=== PATIENT | male | born 1995 | race American Indian/Alaskan Native ===

== ENCOUNTER 2021-07-14 08:28 | Emergency (ER) | payer MEDICAID ==
[2021-07-14 08:33] VITALS: BP 150/110
[2021-07-14] MEDS ORDERED: ALBUTEROL 2.5 MG/3 ML NEBU IH ONE (08:41)
[2021-07-14] MEDS ORDERED: IPRATROPIUM 0.02% NEBU 2.5 ML IH ONE (08:41)
--- NOTE | 2021-07-14 08:41 | Emergency Department Report ---
ED Asthma HPI - General Chief Complaint: Adult Asthma Stated Complaint: LAUREN Time Seen by Provider: 07/14/21 08:37 Source: patient, EMS Mode of arrival: Stretcher Limitations: Other - History of Present Illness Initial Comments: Patient is 25 years old male with history of autism and asthma. Patient brought to the emergency room via EMS from a local correction for asthma exacerbation. Patient developed shortness of breath, difficulty in breathing and wheezing this morning. Caregiver denied any fever, nausea or vomiting. Patient received albuterol, Solu-Medrol and magnesium sulfate by EMS with some improvement. MD Complaint: "asthma attack", shortness of breath, wheezing -: This morning Severity: moderate Treatments Prior to Arrival: inhaled bronchodilator, IV steroid - Related Data Current Asthma Therapy: inhaled bronchodilator Home Medications Medication Instructions Recorded Confirmed Last Taken ALBUTEROL NEB's [Proventil] 2.5 mg IH TID PRN 05/14/15 05/14/15 05/14/15 Fluticasone Propionate [Flovent 1 puff IH BID 05/14/15 05/14/15 05/14/15 Diskus] Previous Rx's Medication Instructions Recorded Last Taken Type Albuterol Sulfate [Albuterol 0.63% 0.63 mg IH Q4HR PRN #2 ml 05/14/15 Unknown Rx NEBS] Albuterol Sulfate [Proair 90 mcg IH Q4HR PRN #2 aer.pow.ba 05/14/15 Unknown Rx Respiclick] predniSONE [Deltasone] 40 mg PO QDAY #8 tab 05/14/15 Unknown Rx Allergies Allergy/AdvReac Type Severity Reaction Status Date / Time No Known Allergies Allergy Verified 07/14/21 08:31 ED Review of Systems ROS: Stated complaint: LAUREN Other details as noted in HPI Comment: All other systems reviewed and negative Constitutional: denies: chills, fever Respiratory: shortness of breath, SOB with exertion, SOB at rest, wheezing. denies: cough, orthopnea Cardiovascular: palpitations. denies: chest pain Gastrointestinal: denies: abdominal pain, nausea, vomiting, diarrhea Neurological: denies: headache, weakness, numbness, paresthesias, confusion ED Past Medical Hx - Past Medical History Hx Asthma: Yes Additional medical history: Autistic - Social History Smoking Status: Never Smoker Substance Use Type: None - Medications Home Medications: Home Medications Medication Instructions Recorded Confirmed Last Taken Type ALBUTEROL NEB's [Proventil] 2.5 mg IH TID PRN 05/14/15 05/14/15 05/14/15 History Albuterol Sulfate [Albuterol 0.63% 0.63 mg IH Q4HR PRN #2 ml 05/14/15 Unknown Rx NEBS] Albuterol Sulfate [Proair 90 mcg IH Q4HR PRN #2 aer.pow.ba 05/14/15 Unknown Rx Respiclick] Fluticasone Propionate [Flovent 1 puff IH BID 05/14/15 05/14/15 05/14/15 History Diskus] predniSONE [Deltasone] 40 mg PO QDAY #8 tab 05/14/15 Unknown Rx ED Physical Exam - General Limitations: Other General appearance: alert, in distress - Head Head exam: Present: atraumatic, normocephalic, normal inspection - Eye Eye exam: Present: normal appearance - ENT ENT exam: Present: normal exam, normal orophraynx, mucous membranes moist - Neck Neck exam: Present: normal inspection, full ROM. Absent: tenderness, meningismus - Respiratory Respiratory exam: Present: respiratory distress, wheezes, rales, rhonchi, accessory muscle use, decreased breath sounds, prolonged expiratory - Cardiovascular Cardiovascular Exam: Present: tachycardia - GI/Abdominal GI/Abdominal exam: Present: soft, normal bowel sounds. Absent: distended, tenderness, guarding, rebound, rigid, mass, bruit, pulsatile mass, hernia - Extremities Exam Extremities exam: Present: normal inspection, full ROM, normal capillary refill. Absent: pedal edema, calf tenderness - Back Exam Back exam: Present: normal inspection, full ROM. Absent: CVA tenderness (R), CVA tenderness (L) - Neurological Exam Neurological exam: Present: alert - Psychiatric Psychiatric exam: Present: normal mood - Skin Skin exam: Present: warm, intact, normal color ED Course Vital Signs 07/14/21 07/14/21 08:29 08:55 Pulse Rate 125 H Pulse Rate [ 120 H Bilateral] Respiratory 16 Rate [Bilateral ] Blood Pressure 150/110 [Left] O2 Sat by Pulse 97 Oximetry ED Medical Decision Making - Lab Data Result diagrams: 07/14/21 09:00 07/14/21 09:00 - Radiology Data Radiology results: report reviewed - Medical Decision Making Patient is 25 years old male with history of autism and asthma. Patient brought to the emergency room via EMS from a local correction for asthma exacerbation. Patient developed shortness of breath, difficulty in breathing and wheezing this morning. Caregiver denied any fever, nausea or vomiting. Patient received albuterol, Solu-Medrol and magnesium sulfate by EMS with some improvement. Patient received albuterol 10 and Atrovent 1 in the emergency room. Patient stated that he is feeling much better. Chest x-ray is negative for acute findin g. Labs reviewed and is unremarkable. Patient given prescription for prednisone and advised caregiver that patient need to follow-up with his primary doctor in the next 2 to 3 days and to return to the ER if he develop any new symptoms. Critical care attestation.: If time is entered above; I have spent that time in minutes in the direct care of this critically ill patient, excluding procedure time. ED Disposition Clinical Impression: Acute asthma exacerbation Disposition: HOME / SELF CARE / HOMELESS Is pt being admited?: No Condition: Stable Instructions: Asthma, Adult Referrals: PRIMARY CARE, [Primary Care Provider] - 3-5 Days
--- NOTE | 2021-07-14 09:19 | XRay Report ---
CHEST 1 VIEW 07/14/2021 9:03 AM INDICATION / CLINICAL INFORMATION: Asthma. COMPARISON: None available. FINDINGS: SUPPORT DEVICES: None. HEART / MEDIASTINUM: No significant abnormality. LUNGS / PLEURA: No significant pulmonary or pleural abnormality. No pneumothorax. ADDITIONAL FINDINGS: No significant additional findings. IMPRESSION: 1. No acute findings. Signer Name: Ezequiel Triana MD Signed: 07/14/2021 9:15 AM Workstation Name: [email or web address]
[2021-07-14 10:49] LABS: BUN/Creatinine Ratio 13; Blood Urea Nitrogen 13 mg/dL (9-20); Calcium 9.4 mg/dL (8.4-10.2); Hemolysis Index 9
[2021-07-14 11:06] LABS: Basophils # (Auto) 0.1 K/mm3 (0.0-0.1); Basophils % (Auto) 0.8 % (0.0-1.8); Eosinophils # (Auto) 0.3 K/mm3 (0.0-0.4); Eosinophils % (Auto) 4.6 % (0.0-4.3); Hematocrit 48.3 % (35.5-45.6); Hemoglobin 16.8 gm/dl (11.8-15.2); Lymphocytes % (Auto) 12.5 % (13.4-35.0); Mean Corpuscular HGB Conc 35 % (32-34); Mean Corpuscular Volume 90 fl (84-94); Monocytes # (Auto) 0.5 K/mm3 (0.0-0.8); Platelet Count 177 K/mm3 (140-440); Red Cell Distribution Width 13.3 % (13.2-15.2)
== END 2021-07-14 13:41 | disposition home or self-care (01) ==
LOC: ED 08:28
DX: J45.901 Unspecified asthma with (acute) exacerbation (principal)
CPT/HCPCS: 36415; 71045; 80048; 85025; 94644; 99284

== ENCOUNTER 2021-08-09 19:07 | Emergency (ER) | payer MEDICAID ==
[2021-08-09] MEDS ORDERED: IPRATROPIUM 0.02% NEBU 2.5 ML IH ONE (20:09)
[2021-08-09] MEDS ORDERED: MAGNESIUM SULFATE 2 GM/50 ML BAG IV ONE (20:09)
[2021-08-09] MEDS ORDERED: ALBUTEROL 2.5 MG/3 ML NEBU IH ONE (20:09)
[2021-08-09] MEDS ORDERED: methylPREDNISolone Sod Succinate 125 MG/2 ML INJ IV ONE (20:09)
--- NOTE | 2021-08-09 22:36 | Emergency Department Report ---
<LISETTE GIFFORD - Last Filed: 08/09/21 23:15> ED Asthma HPI - General Chief Complaint: Adult Asthma Stated Complaint: ASTHMA Time Seen by Provider: 08/09/21 20:06 Source: patient Mode of arrival: Ambulatory Limitations: No Limitations - History of Present Illness Initial Comments: 25-year-old male present [facility] with acute asthma exacerbation. Patient wheezing upon EMS arrival. Patient states he uses albuterol inhaler without improvement. Patient does feel somewhat better after he received albuterol 5 mg provided by EMS but has persistent wheezing upon arrival. He denies history of previous intubations, cough, fever, current infectious symptoms. Initially room air 98% as per nurse triage - Related Data Home Medications Medication Instructions Recorded Confirmed Last Taken Fluticasone Propionate [Flovent 1 puff IH BID 05/14/15 05/14/15 05/14/15 Diskus] Previous Rx's Medication Instructions Recorded Last Taken Type Albuterol Sulfate [Albuterol 0.63% 0.63 mg IH Q4HR PRN #2 ml 05/14/15 Unknown Rx NEBS] Albuterol Sulfate [Proair 90 mcg IH Q4HR PRN #2 aer.pow.ba 05/14/15 Unknown Rx Respiclick] predniSONE [Deltasone] 40 mg PO QDAY #8 tab 05/14/15 Unknown Rx ALBUTEROL NEB's [Proventil 0.083% 2.5 mg IH TID PRN #30 neb 08/09/21 Unknown Rx NEBS] Albuterol Sulfate [Proventil Hfa] 2 puff IH Q4HR PRN #1 inh 08/09/21 Unknown Rx Nebulizer Accessories [Mouthpiece] 1 each MC PRN #1 each 08/09/21 Unknown Rx Nebulizer and Compressor [Easy Air 1 each MC PRN #1 each 08/09/21 Unknown Rx Compressor Nebulizer] Prednisone [predniSONE 10 mg 10 mg PO .TAPER #1 tab.ds.pk 08/09/21 Unknown Rx (6-Day Pack, 21 Tabs)] Allergies Allergy/AdvReac Type Severity Reaction Status Date / Time No Known Allergies Allergy Verified 08/09/21 19:58 ED Review of Systems Comment: All other systems reviewed and negative ED Past Medical Hx - Past Medical History Hx Asthma: Yes Additional medical history: Autistic - Social History Smoking Status: Never Smoker - Medications Home Medications: Home Medications Medication Instructions Recorded Confirmed Last Taken Type Albuterol Sulfate [Albuterol 0.63% 0.63 mg IH Q4HR PRN #2 ml 05/14/15 Unknown Rx NEBS] Albuterol Sulfate [Proair 90 mcg IH Q4HR PRN #2 aer.pow.ba 05/14/15 Unknown Rx Respiclick] Fluticasone Propionate [Flovent 1 puff IH BID 05/14/15 05/14/15 05/14/15 History Diskus] predniSONE [Deltasone] 40 mg PO QDAY #8 tab 05/14/15 Unknown Rx ALBUTEROL NEB's [Proventil 0.083% 2.5 mg IH TID PRN #30 neb 08/09/21 Unknown Rx NEBS] Albuterol Sulfate [Proventil Hfa] 2 puff IH Q4HR PRN #1 inh 08/09/21 Unknown Rx Nebulizer Accessories [Mouthpiece] 1 each MC PRN #1 each 08/09/21 Unknown Rx Nebulizer and Compressor [Easy Air 1 each MC PRN #1 each 08/09/21 Unknown Rx Compressor Nebulizer] Prednisone [predniSONE 10 mg 10 mg PO .TAPER #1 tab.ds.pk 08/09/21 Unknown Rx (6-Day Pack, 21 Tabs)] ED Physical Exam - General Limitations: No Limitations - Other Other exam information: General: No acute distress Head: Atraumatic Eyes: normal appearance ENT: Moist mucous membranes Neck: Normal appearance, no midline tenderness Chest: Bilateral wheezing, tachypnea accessory muscle CV: Mild tachycardia regular rhythm Abdomen: Soft, normal bowel sounds, nontender, nondistended, no rebound or guarding Back: Normal inspection Extremity: Normal inspection, full range of motion Neuro: Alert O x 3, no facial asymmetry, speech clear, no gross motor sensory deficit Psych: Appropriate behavior Skin: No rash ED Medical Decision Making - Medical Decision Making 25-year-old male presents to the hospital as exacerbation. No signs hypoxia upon arrival. Patient was with bronchodilators, magnesium, Solu-Medrol and is improving. Patient requires additional observation due to persistent wheezing and may need additional nebs prior to discharge. Pt signed out to DR welsh to reassess and dispo Critical Care Time: No ED Disposition Clinical Impression: Acute asthma exacerbation Disposition: 01 HOME / SELF CARE / HOMELESS Is pt being admited?: No Does the pt Need Aspirin: No Condition: Stable Instructions: Asthma, Adult Additional Instructions: Take the medication as prescribed. Follow-up with your doctor or doctor/clinic provided. Return if symptoms worsen as indicated by your discharge instructions. Prescriptions: Nebulizer and Compressor [Easy Air Compressor Nebulizer] 1 each MC PRN #1 each Nebulizer Accessories [Mouthpiece] 1 each MC PRN #1 each Prednisone [predniSONE 10 mg (6-Day Pack, 21 Tabs)] 10 mg PO .TAPER #1 tab.ds.pk ALBUTEROL NEB's [Proventil 0.083% NEBS] 2.5 mg IH TID PRN #30 neb PRN Reason: Wheezing Albuterol Sulfate [Proventil Hfa] 2 puff IH Q4HR PRN #1 inh PRN Reason: Wheezing Referrals: PRIMARY CARE, [Primary Care Provider] - 3-5 Days [facility] [Provider Group] - 3-5 Days Time of Disposition: 23:28 <RADHA WELSH - Last Filed: 08/10/21 00:54> ED Review of Systems ROS: Stated complaint: ASTHMA Other details as noted in HPI ED Course Vital Signs 08/09/21 08/09/21 08/09/21 19:50 21:35 21:37 Temperature 98.2 F 98.0 F Pulse Rate 110 H 108 H Pulse Rate [ 104 H Bilateral] Respiratory 20 16 Rate Respiratory 24 Rate [Bilateral ] Blood Pressure 105/70 Blood Pressure 102/73 [Right] O2 Sat by Pulse 96 98 Oximetry 08/09/21 21:38 Temperature Pulse Rate Pulse Rate [ Bilateral] Respiratory Rate Respiratory Rate [Bilateral ] Blood Pressure Blood Pressure [Right] O2 Sat by Pulse 98 Oximetry ED Medical Decision Making - Medical Decision Making Patient reassessed and work of breathing is much improved. States he is ready to go home. Will discharge with return precautions. Critical care attestation.: If time is entered above; I have spent that time in minutes in the direct care of this critically ill patient, excluding procedure time.
[2021-08-10 01:02] VITALS: BP 126/76
== END 2021-08-10 02:26 | disposition home or self-care (01) ==
LOC: ED 19:07
DX: J45.901 Unspecified asthma with (acute) exacerbation (principal)
CPT/HCPCS: 94644; 96365; 96375; 99283; J2930; J3475

== ENCOUNTER 2021-09-23 12:01 | Emergency (ER) | payer MEDICAID ==
[2021-09-23] MEDS ORDERED: IPRATROPIUM/ALBUTEROL SULFATE 3 ML AMPUL.NEB IH ONE (12:52)
--- NOTE | 2021-09-23 12:55 | Emergency Department Report ---
ED General Adult HPI - General Chief complaint: Adult Asthma Stated complaint: LAUREN Time Seen by Provider: 09/23/21 12:51 Source: patient, EMS Mode of arrival: Stretcher Limitations: Altered Mental Status - History of Present Illness Initial comments: The patient presents to the emergency department with a chief complaint of shortness of breath. Patient states he has a history of asthma began to have difficulty breathing this morning. Prior to his arrival EMS provided a breathing treatment as well as Solu-Medrol. Patient states his symptoms have i mproved since the intervention by EMS. He denies any chest pain or abdominal pain. Patient is not in respiratory distress upon arrival. -: Sudden Severity scale (0 -10): 0 Consistency: constant Improves with: none Worsens with: none Associated Symptoms: denies other symptoms Treatments Prior to Arrival: none - Related Data Home Medications Medication Instructions Recorded Confirmed Last Taken Fluticasone Propionate [Flovent 1 puff IH BID 05/14/15 05/14/15 05/14/15 Diskus] Previous Rx's Medication Instructions Recorded Last Taken Type Albuterol Sulfate [Albuterol 0.63% 0.63 mg IH Q4HR PRN #2 ml 05/14/15 Unknown Rx NEBS] Albuterol Sulfate [Proair 90 mcg IH Q4HR PRN #2 aer.pow.ba 05/14/15 Unknown Rx Respiclick] predniSONE [Deltasone] 40 mg PO QDAY #8 tab 05/14/15 Unknown Rx ALBUTEROL NEB's [Proventil 0.083% 2.5 mg IH TID PRN #30 neb 08/09/21 Unknown Rx NEBS] Albuterol Sulfate [Proventil Hfa] 2 puff IH Q4HR PRN #1 inh 08/09/21 Unknown Rx Nebulizer Accessories [Mouthpiece] 1 each MC PRN #1 each 08/09/21 Unknown Rx Nebulizer and Compressor [Easy Air 1 each MC PRN #1 each 08/09/21 Unknown Rx Compressor Nebulizer] Prednisone [predniSONE 10 mg 10 mg PO .TAPER #1 tab.ds.pk 08/09/21 Unknown Rx (6-Day Pack, 21 Tabs)] Albuterol Mdi (or & Nicu Only) 2 puff IH Q4HR PRN #1 inhalation 09/23/21 Unknown Rx [ProAir HFA Inhaler] Albuterol Sulfate [Albuterol 0.63% 0.63 mg IH Q4HR PRN #30 ml 09/23/21 Unknown Rx NEBS] Albuterol Sulfate [Albuterol 0.63% 0.63 mg IH Q4HR PRN #30 ml 09/23/21 Unknown Rx NEBS] predniSONE [Deltasone] 20 mg PO DAILY #15 tablet 09/23/21 Unknown Rx Allergies Allergy/AdvReac Type Severity Reaction Status Date / Time No Known Allergies Allergy Verified 09/23/21 12:12 ED Review of Systems ROS: Stated complaint: LAUREN Other details as noted in HPI Comment: All other systems reviewed and negative Constitutional: denies: chills, fever Eyes: denies: eye pain, eye discharge, vision change ENT: denies: ear pain, throat pain Respiratory: wheezing. denies: cough, shortness of breath Cardiovascular: denies: chest pain, palpitations Endocrine: no symptoms reported Gastrointestinal: denies: abdominal pain, nausea, diarrhea Genitourinary: denies: urgency, dysuria Musculoskeletal: denies: back pain, joint swelling, arthralgia Skin: denies: rash, lesions Neurological: denies: headache, weakness, paresthesias Psychiatric: denies: anxiety, depression Hematological/Lymphatic: denies: easy bleeding, easy bruising ED Past Medical Hx - Past Medical History Hx Asthma: Yes Additional medical history: Autistic - Social History Smoking Status: Never Smoker - Medications Home Medications: Home Medications Medication Instructions Recorded Confirmed Last Taken Type Albuterol Sulfate [Albuterol 0.63% 0.63 mg IH Q4HR PRN #2 ml 05/14/15 Unknown Rx NEBS] Albuterol Sulfate [Proair 90 mcg IH Q4HR PRN #2 aer.pow.ba 05/14/15 Unknown Rx Respiclick] Fluticasone Propionate [Flovent 1 puff IH BID 05/14/15 05/14/15 05/14/15 History Diskus] predniSONE [Deltasone] 40 mg PO QDAY #8 tab 05/14/15 Unknown Rx ALBUTEROL NEB's [Proventil 0.083% 2.5 mg IH TID PRN #30 neb 08/09/21 Unknown Rx NEBS] Albuterol Sulfate [Proventil Hfa] 2 puff IH Q4HR PRN #1 inh 08/09/21 Unknown Rx Nebulizer Accessories [Mouthpiece] 1 each PRN #1 each 08/09/21 Unknown Rx Nebulizer and Compressor [Easy Air 1 each PRN #1 each 08/09/21 Unknown Rx Compressor Nebulizer] Prednisone [predniSONE 10 mg 10 mg PO .TAPER #1 tab.ds.pk 08/09/21 Unknown Rx (6-Day Pack, 21 Tabs)] Albuterol Mdi (or & Nicu Only) 2 puff IH Q4HR PRN #1 inhalation 09/23/21 Unknown Rx [ProAir HFA Inhaler] Albuterol Sulfate [Albuterol 0.63% 0.63 mg IH Q4HR PRN #30 ml 09/23/21 Unknown Rx NEBS] Albuterol Sulfate [Albuterol 0.63% 0.63 mg IH Q4HR PRN #30 ml 09/23/21 Unknown Rx NEBS] predniSONE [Deltasone] 20 mg PO DAILY #15 tablet 09/23/21 Unknown Rx ED Physical Exam - General Limitations: Altered Mental Status General appearance: alert, in no apparent distress - Head Head exam: Present: atraumatic, normocephalic - Eye Eye exam: Present: normal appearance, PERRL, EOMI - ENT ENT exam: Present: mucous membranes moist - Neck Neck exam: Present: normal inspection - Respiratory Respiratory exam: Present: wheezes. Absent: respiratory distress - Cardiovascular Cardiovascular Exam: Present: regular rate, normal rhythm. Absent: systolic murmur, diastolic murmur, rubs, gallop - GI/Abdominal GI/Abdominal exam: Present: soft, normal bowel sounds. Absent: distended, tenderness - Rectal Rectal exam: Present: deferred - Extremities Exam Extremities exam: Present: normal inspection - Back Exam Back exam: Present: normal inspection - Neurological Exam Neurological exam: Present: alert, oriented X3, CN II-XII intact. Absent: motor sensory deficit - Psychiatric Psychiatric exam: Present: normal affect, normal mood - Skin Skin exam: Present: warm, dry, intact, normal color. Absent: rash ED Course Vital Signs 09/23/21 09/23/21 12:01 13:10 Temperature 98.0 F Pulse Rate 106 H Pulse Rate [ 82 Anterior] Pulse Rate [ 80 Posterior] Respiratory 18 Rate Respiratory 18 Rate [Anterior] Respiratory 18 Rate [Posterior ] Blood Pressure 151/96 [Left] O2 Sat by Pulse 98 Oximetry ED Medical Decision Making - Medical Decision Making Patient given breathing treatment in ED with significant improvement Critical care attestation.: If time is entered above; I have spent that time in minutes in the direct care of this critically ill patient, excluding procedure time. ED Disposition Clinical Impression: Asthma exacerbation Disposition: HOME / SELF CARE / HOMELESS Is pt being admited?: No Does the pt Need Aspirin: No Condition: Stable Instructions: Asthma and Physical Activity, Asthma Attack Additional Instructions: return if worse Referrals: PRIMARY CAREMD [Primary Care Provider] - 3-5 Days SAVANNA MERCADO MD [Staff Physician] - 3-5 Days Time of Disposition: 14:05
[2021-09-23 16:14] VITALS: BP 141/88
== END 2021-09-23 16:14 | disposition home or self-care (01) ==
LOC: ED 12:01
DX: J45.901 Unspecified asthma with (acute) exacerbation (principal)
CPT/HCPCS: 94640; 94644; 99283